=== PATIENT | female | born 1965 | race African-American/Black ===

== ENCOUNTER 2019-12-26 09:51 | Observation (INO) ==
[2019-12-26] MEDS ORDERED: ceFAZolin 1,000 MG in SYRINGE 1 EACH IV ONE (12:27)
[2019-12-26] MEDS ORDERED: HEPARIN 5,000 UNIT/1 ML VIAL ONE (12:37)
[2019-12-26] MEDS ORDERED: LIDOCAINE 1%/EPI INJ 20 ML VIAL ONE (12:37)
[2019-12-26] MEDS ORDERED: BUPIVACAINE MPF 0.25% 30 ML VIAL ONE (12:37)
[2019-12-26 13:15] LABS: Basophils % 0.4 % (0.0-0.8); Eosinophils # 0.3 10*3/uL (0.0-0.87); Eosinophils % 3.9 % (0.00-10.9); Hematocrit 25.6 VOL% (35.7-47.0); Hemoglobin 8.3 GM/DL (12.0-16.0); Immature Granulocytes % 0.6 %; Immature Granulocytes Absolute 0.04 #; Lymphocytes # 1.4 10*3/uL (1.4-4.0); Lymphocytes % 20.9 % (21.3-54.2); Mean Corpuscular HGB Conc 32.4 GM/DL (32-36); Mean Corpuscular Volume 90.5 FL (87-102); Mean Platelet Volume 9.9 FL (9.6-12.0); Monocytes % 7.6 % (1.7-12.7); Neutrophils % 66.6 % (38.7-73.9); Platelet Count 279 T/CUMM (130-400); Red Blood Count 2.83 MC/CUMM (3.8-5.5); Red Cell Distribution Width 14.5 % (9.3-17.3); White Blood Count 6.7 T/CUMM (4-12)
[2019-12-26 13:23] LABS: PT Patient Result 10.4 SECS (9.6-12.2)
[2019-12-26 13:32] LABS: Calcium 8.8 MG/DL (8.5-10.1); Osmolality,Calculated 290.5 MOS/KG (273-304)
[2019-12-26 13:38] LABS: Alanine Aminotransferase 19 U/L (13-56); Albumin 2.6 G/DL (3.4-5.0); Alkaline Phosphatase 190 U/L (45-117); Aspartate Amino Transferase 14 U/L (0-37); Blood Urea Nitrogen 37 MG/DL (7-18); Estimated Glom Filtration Rate 33 ML/MIN; Glucose 416 MG/DL (74-106); Osmolality,Calculated 286.8 MOS/KG (273-304); Troponin I 0.024 NG/ML (0.00-0.045)
[2019-12-26] MEDS ORDERED: ceFAZolin 1,000 MG VIAL ONE (13:55)
[2019-12-26] MEDS ORDERED: GLUCAGON 1 MG VIAL IM PRN ×2 (14:34→15:23)
[2019-12-26] MEDS ORDERED: DEXTROSE 50% 25 GM/50 ML VIAL IV PRN ×2 (14:34→15:23)
[2019-12-26] MEDS ORDERED: fentaNYL 100 MCG/2 ML VIAL ONE (14:39)
[2019-12-26] MEDS ORDERED: propofoL 200 MG/20 ML VIAL IV ONE (14:39)
[2019-12-26] MEDS ORDERED: SODIUM CHLORIDE 0.9% 100 ML IV ONE (14:39)
[2019-12-26] MEDS ORDERED: MIDAZOLAM 2 MG/2 ML VIAL ONE (14:39)
[2019-12-26] MEDS ORDERED: LABETALOL 100 MG/20 ML VIAL IV ONE (15:11)
[2019-12-26] MEDS ORDERED: ACETAMINOPHEN 325 MG TABLET PO PRN (15:23)
[2019-12-26] MEDS ORDERED: ONDANSETRON 4 MG/2 ML VIAL IV PRN (15:23)
[2019-12-26] MEDS ORDERED: INSULIN REGULAR 100 UNIT/ML IV ONE (15:34)
[2019-12-26] MEDS ORDERED: hydrALAZINE 20 MG/1 ML VIAL IV PRN (15:53)
[2019-12-26] MEDS: INSULIN REGULAR 100 UNIT/ML SUBCUT SCH ×2 (17:20→20:53)
[2019-12-26] MEDS ORDERED: INSULIN REGULAR 100 UNIT/ML SUBCUT SCH (18:00)
[2019-12-26] MEDS ORDERED: INSULIN GLARGINE 100 UNIT/ML SUBCUT SCH (21:00)
[2019-12-26] MEDS ORDERED: GABAPENTIN 300 MG CAPSULE PO SCH (21:00)
[2019-12-27 06:14] LABS: Basophils % 0.6 % (0.0-0.8); Eosinophils # 0.2 10*3/uL (0.0-0.87); Eosinophils % 3.8 % (0.00-10.9); Hematocrit 23.6 VOL% (35.7-47.0); Hemoglobin 7.6 GM/DL (12.0-16.0); Immature Granulocytes % 0.8 %; Immature Granulocytes Absolute 0.05 #; Lymphocytes # 1.6 10*3/uL (1.4-4.0); Lymphocytes % 24.9 % (21.3-54.2); Mean Corpuscular HGB Conc 32.2 GM/DL (32-36); Mean Corpuscular Volume 91.1 FL (87-102); Mean Platelet Volume 10.7 FL (9.6-12.0); Monocytes % 9.4 % (1.7-12.7); Neutrophils % 60.5 % (38.7-73.9); Platelet Count 256 T/CUMM (130-400); Red Blood Count 2.59 MC/CUMM (3.8-5.5); Red Cell Distribution Width 14.6 % (9.3-17.3); White Blood Count 6.4 T/CUMM (4-12)
[2019-12-27 06:53] LABS: Calcium 8.7 MG/DL (8.5-10.1); Osmolality,Calculated 290.1 MOS/KG (273-304)
[2019-12-27] MEDS: INSULIN REGULAR 100 UNIT/ML SUBCUT SCH ×3 (07:50→17:15)
[2019-12-27] MEDS ORDERED: ACETAMINOPHEN 325 MG TABLET PO PRN (08:39)
[2019-12-27] MEDS ORDERED: diphenhydrAMINE CAP 25 MG CAPSULE PO PRN (08:39)
[2019-12-27] MEDS ORDERED: SODIUM CHLORIDE 0.9% 1,000 ML IV PRN (08:39)
[2019-12-27] MEDS ORDERED: EPOETIN ALFA 10,000 UNIT/1 ML VIAL IV PRN (08:53)
[2019-12-27] MEDS ORDERED: amLODIPine 10 MG TABLET PO SCH (09:00)
[2019-12-27] MEDS ORDERED: PANTOPRAZOLE 40 MG TABLET PO SCH (09:00)
[2019-12-27] MEDS ORDERED: FENOFIBRATE 145 MG TABLET PO SCH (09:00)
[2019-12-27] MEDS ORDERED: LISINOPRIL/HCTZ 20-25 MG TABLET PO SCH (09:00)
[2019-12-27] MEDS ORDERED: LEVOTHYROXINE 100 MCG TABLET PO SCH (09:00)
[2019-12-27] MEDS ORDERED: ROSUVASTATIN 20 MG TABLET PO SCH (09:00)
[2019-12-27 09:25] LABS: Hepatitis B Surface Ag Quant < 0.10 Index; Hepatitis B Surface Ag Result Negative (Negative)
[2019-12-27] MEDS ORDERED: HEPARIN 10,000 UNIT/10 ML VIAL IV SCH (10:30)
[2019-12-27 20:47] VITALS: BP 127/66
== END 2019-12-27 21:00 | disposition home or self-care (01) ==
LOC: N.ED 09:51 → N.SDSINP 12:43 → N.SDS 12:43 → N.SDSINP 12:46 → N.3E 16:12 → EDSDCBED 16:12 → N.SDS 12-27 21:00 → UNDODEPSDC 01-05 12:04
PROVIDERS: ADMIT Student in an Organized Health Care Education/Training Program; ATTEND Student in an Organized Health Care Education/Training Program

== ENCOUNTER 2020-01-30 09:46 | Observation (INO) ==
[2020-01-30 11:00] LABS: Basophils % 0.4 % (0.0-0.8); Eosinophils # 0.3 10*3/uL (0.0-0.87); Eosinophils % 3.7 % (0.00-10.9); Hemoglobin 7.2 GM/DL (12.0-16.0); Immature Granulocytes % 1.6 %; Immature Granulocytes Absolute 0.12 #; Lymphocytes # 1.4 10*3/uL (1.4-4.0); Lymphocytes % 17.9 % (21.3-54.2); Mean Corpuscular HGB Conc 31.3 GM/DL (32-36); Mean Corpuscular Volume 94.3 FL (87-102); Mean Platelet Volume 9.8 FL (9.6-12.0); Monocytes % 9.1 % (1.7-12.7); Neutrophils % 67.3 % (38.7-73.9); Platelet Count 265 T/CUMM (130-400); Red Blood Count 2.44 MC/CUMM (3.8-5.5); Red Cell Distribution Width 13.8 % (9.3-17.3); White Blood Count 7.7 T/CUMM (4-12)
[2020-01-30 11:18] LABS: Alanine Aminotransferase 16 U/L (13-56); Albumin 2.9 G/DL (3.4-5.0); Alkaline Phosphatase 89 U/L (45-117); Aspartate Amino Transferase 17 U/L (0-37); Bilirubin,Total < 0.39 MG/DL (0.2-1.0); Blood Urea Nitrogen 56 MG/DL (7-18); Calcium 8.5 MG/DL (8.5-10.1); Estimated Glom Filtration Rate 18 ML/MIN; Glucose 252 MG/DL (74-106); Osmolality,Calculated 290.4 MOS/KG (273-304); Total Protein 7.6 G/DL (6.4-8.3)
[2020-01-30] MEDS ORDERED: DEXTROSE 50% 25 GM/50 ML VIAL IV PRN (13:07)
[2020-01-30] MEDS ORDERED: ONDANSETRON 4 MG/2 ML VIAL IV PRN (13:07)
[2020-01-30] MEDS ORDERED: ACETAMINOPHEN 325 MG TABLET PO PRN (13:07)
[2020-01-30] MEDS ORDERED: GLUCAGON 1 MG VIAL IM PRN (13:07)
[2020-01-30] MEDS: INSULIN LISPRO 100 UNIT/ML SUBCUT SCH ×2 (16:38→21:13)
[2020-01-30] MEDS: INSULIN GLARGINE 100 UNIT/ML SUBCUT SCH (21:13)
[2020-01-30] MEDS: GABAPENTIN 300 MG CAPSULE PO SCH (21:13)
[2020-01-30] MEDS: FENOFIBRATE 145 MG TABLET PO SCH (21:13)
[2020-01-30] MEDS: LEVOTHYROXINE 100 MCG TABLET PO SCH (21:13)
[2020-01-30] MEDS: ROSUVASTATIN 20 MG TABLET PO SCH (21:14)
[2020-01-30 23:07] LABS: Apearance,Urine CLOUDY (Clear); Bacteria,Urine Many /HPF (Few); Bilirubin,Urine Negative (Negative); Blood, Urine Negative (Negative); Glucose,Urine (UA) >=500 mg/dL (Negative); Ketones,Urine Negative (Negative); Mucus,Urine Occasional /LPF (Occasional); Nitrite,Urine Negative (Negative); Protein,Urine >=500 MG/DL; RBC,Urine <1 /HPF (0-4); Squamous Epithelial Cell,Urine Moderate /HPF (0-10); Urine Color Yellow (Yellow); Urine Specific Gravity 1.012 (1.001-1.035); Urine Urobilinogen < 2.0 EU/DL (0.2-1.0); WBC,Urine 4 /HPF (0-6)
[2020-01-31 04:27] LABS: Basophils % 0.3 % (0.0-0.8); Eosinophils # 0.4 10*3/uL (0.0-0.87); Eosinophils % 5.5 % (0.00-10.9); Hematocrit 20.2 VOL% (35.7-47.0); Immature Granulocytes % 0.8 %; Immature Granulocytes Absolute 0.05 #; Lymphocytes # 1.7 10*3/uL (1.4-4.0); Lymphocytes % 25.8 % (21.3-54.2); Mean Corpuscular HGB Conc 31.7 GM/DL (32-36); Mean Corpuscular Volume 94.8 FL (87-102); Mean Platelet Volume 10.1 FL (9.6-12.0); Monocytes % 9.4 % (1.7-12.7); Neutrophils % 58.2 % (38.7-73.9); Platelet Count 267 T/CUMM (130-400); Red Blood Count 2.13 MC/CUMM (3.8-5.5); Red Cell Distribution Width 13.9 % (9.3-17.3); White Blood Count 6.4 T/CUMM (4-12)
[2020-01-31 04:38] LABS: Hemoglobin 6.4 GM/DL (12.0-16.0)
[2020-01-31] MEDS ORDERED: SODIUM CHLORIDE 0.9% 1,000 ML IV PRN (04:43)
[2020-01-31 05:10] LABS: Alanine Aminotransferase 15 U/L (13-56); Albumin 2.6 G/DL (3.4-5.0); Alkaline Phosphatase 67 U/L (45-117); Aspartate Amino Transferase 15 U/L (0-37); Bilirubin,Total < 0.39 MG/DL (0.2-1.0); Blood Urea Nitrogen 62 MG/DL (7-18); Calcium 8.3 MG/DL (8.5-10.1); Estimated Glom Filtration Rate 16 ML/MIN; Glucose 99 MG/DL (74-106); Osmolality,Calculated 287.1 MOS/KG (273-304); Total Protein 6.9 G/DL (6.4-8.3)
[2020-01-31] MEDS: INSULIN LISPRO 100 UNIT/ML SUBCUT SCH ×4 (07:57→20:53)
[2020-01-31 14:52] LABS: Hepatitis B Surface Ag Result Negative (Negative)
[2020-01-31] MEDS: FENOFIBRATE 145 MG TABLET PO SCH (20:52)
[2020-01-31] MEDS: GABAPENTIN 300 MG CAPSULE PO SCH (20:52)
[2020-01-31] MEDS: ROSUVASTATIN 20 MG TABLET PO SCH (20:52)
[2020-01-31] MEDS: INSULIN GLARGINE 100 UNIT/ML SUBCUT SCH (20:53)
[2020-01-31] MEDS: LEVOTHYROXINE 100 MCG TABLET PO SCH (20:53)
[2020-02-01 05:16] LABS: Basophils % 0.3 % (0.0-0.8); Eosinophils # 0.3 10*3/uL (0.0-0.87); Hematocrit 23.9 VOL% (35.7-47.0); Hemoglobin 7.3 GM/DL (12.0-16.0); Immature Granulocytes % 0.8 %; Immature Granulocytes Absolute 0.05 #; Lymphocytes # 1.6 10*3/uL (1.4-4.0); Lymphocytes % 25.1 % (21.3-54.2); Mean Corpuscular HGB Conc 30.5 GM/DL (32-36); Mean Corpuscular Volume 94.5 FL (87-102); Monocytes % 10.7 % (1.7-12.7); Neutrophils % 58.1 % (38.7-73.9); Platelet Count 230 T/CUMM (130-400); Red Blood Count 2.53 MC/CUMM (3.8-5.5); Red Cell Distribution Width 13.8 % (9.3-17.3); White Blood Count 6.2 T/CUMM (4-12)
[2020-02-01 05:37] LABS: Albumin 2.6 G/DL (3.4-5.0); Bilirubin,Total 0.5 MG/DL (0.2-1.0); Calcium 8.3 MG/DL (8.5-10.1); Osmolality,Calculated 287.1 MOS/KG (273-304); Total Protein 6.9 G/DL (6.4-8.3)
[2020-02-01 08:21] VITALS: BP 118/60
[2020-02-01] MEDS: INSULIN LISPRO 100 UNIT/ML SUBCUT SCH (08:41)
== END 2020-02-01 11:14 | disposition home or self-care (01) ==
LOC: N.EDINP 09:46 → N.ED 09:46 → SUATTDRO 12:08 → N.EDINP 14:05 → N.5E 14:19
PROVIDERS: ADMIT Internal Medicine; ATTEND Internal Medicine